=== PATIENT | female | born 1995 | race Caucasian/White ===

== ENCOUNTER 2021-06-25 21:45 | Emergency (ER) | payer BC ==
[2021-06-25] MEDS ORDERED: Famotidine 20 MG Tab PO ONE (21:46)
[2021-06-25] MEDS ORDERED: predniSONE 20 MG Tab PO ONE (21:46)
[2021-06-25] MEDS ORDERED: Famotidine 20 MG/2 ML SDV ONE (22:16)
[2021-06-25 22:38] VITALS: BP 124/68; PULSE 108
[2021-06-25] MEDS ORDERED: EPINEPHrine 1 MG/ML SDV IM ONE (23:57)
[2021-06-25] MEDS ORDERED: methylPREDNISolone Sodium Succinate 125 MG/2 ML SDV IVPUSH ONE (23:57)
[2021-06-25] MEDS ORDERED: diphenhydrAMINE 50 MG/ML SDV IVPUSH ONE (23:58)
[2021-06-26] MEDS ORDERED: predniSONE 20 MG Tab ONE (00:15)
[2021-06-26] MEDS ORDERED: Famotidine 20 MG Tab ONE (00:16)
[2021-06-26] MEDS ORDERED: diphenhydrAMINE 25 MG Tab ONE (00:53)
== END 2021-06-26 01:14 | disposition home or self-care (01) ==
LOC: DL.ED 21:45
DX: T78.3XXA Angioneurotic edema, initial encounter (principal); E03.9 Hypothyroidism, unspecified; Z79.899 Other long term (current) drug therapy
CPT/HCPCS: 96372; 96374; 96375; 99284; 99284-25; A9270-GY; J0171; J1200; J2930; J3490; J7512